=== PATIENT | female | born 1990 | race Caucasian/White ===

== ENCOUNTER 2019-03-17 22:44 | Inpatient (IN) | payer OTHER ==
[~2019-03-17] VITALS: Ht 182.9 cm; Wt 85.0 kg
[~2019-03-17 22:44] MED LIST: ALBU90OI INH; AMOCLA875 PO; Augmentin 500-1 EACH PO; CEPH500 PO; CYCL10 PO; DICL25ER PO; DOXY100 PO; HYDACE5 PO; LIDO2L TOP; METCAR500 PO; NAPR500 PO; OXYACE5T PO; PHENA200 PO; PROM25 PO; RXCYCL10 PO; RXHYDACE PO; SERT100 PO; SULTRIDS PO; Zofran8 MG PO
[2019-03-17] MEDS ORDERED: IRON150C PO (23:40)
[2019-03-17] MEDS ORDERED: Vitamin C100 M1 PO (23:40)
[2019-03-17 23:41] LABS: BASOPHILS ABSOLUTE AUTO 0.02 K/mm3 (0.00-0.23); BASOPHILS PERCENT AUTO 0 % (0-2); EOSINOPHILS ABSOLUTE AUTO 0.16 K/mm3 (0.00-0.68); EOSINOPHILS PERCENT AUTO 1 % (0-6); Hematocrit 33.7 % (33.0-51.0); Hemoglobin 11.8 g/dL (11.5-16.0); IMMATURE GRAN ABSOLUTE AUTO 0.08 K/mm3 (0.00-0.10); IMMATURE GRAN PERCENT AUTO 1 % (0-1); LYMPHOCYTES ABSOLUTE AUTO 1.72 K/mm3 (0.84-5.20); LYMPHOCYTES PERCENT AUTO 15 % (21-46); MONOCYTES PERCENT AUTO 5 % (4-13); Mean Corpuscular HGB 32.8 pg (26.0-34.0); Mean Corpuscular Volume 94 fL (80-100); Mean Platelet Volume 11.2 fL (9.1-12.4); NEUTROPHILS ABSOLUTE AUTO 8.67 K/mm3 (1.96-9.15); NEUTROPHILS PERCENT AUTO 77 % (41-73); Platelet Count 144 K/mm3 (150-400); RDW Coefficient Variation 13.3 % (11.7-14.2); RDW Standard Deviation 45.2 fL (35.1-46.3); White Blood Cell Count 11.25 K/mm3 (4.00-11.30)
[2019-03-17] MEDS ORDERED: ACYC400 PO (23:41)
--- NOTE | 2019-03-18 07:38 | NUR ---
03/18/19 0738 Jose Enrique Doan PT HAD VELASQUEZ AND EPIDURAL IN PLACE PRIOR TO ARRIVAL TO OR. 0795 BABY GIRL BORN. 8-9. WEIGHT 6 LBS 10 OZ. CORD BLOOD SENT WITH BABY NURSE JOVANA ISAACS. NO CORD SEGMENT SENT.
--- NOTE | 2019-03-18 12:03 | NUR ---
PT UP TO WC PT ASKING REPEATEDLY TO GO OUT TO SMOKE URGED PT TO TRY PATCH PT REFUSED AND GOT SELF OUT OF BED PT S.O. WC PT OUTSIDE TO SMOKE.
--- NOTE | 2019-03-18 14:32 | NUR ---
see [facility] incident report baby is being discharged. was kept as a patient to wait for a lab on mom to come back to determine if baby needs treatment and labs including an LP. the lab was not ordered or sent for a confirmation like it was suppose to be. the problem is currently fixed not, but wont get results until friday-. dr jett is aware and called swapnil hanson with dr kerns and [facility]. she is following there recommendations and has gone over the 2 plans with mom. plan is to dischage baby and wait for results on friday, mom is good with this plan.
--- NOTE | 2019-03-18 18:47 | NUR ---
out to smoke, in a wheelchair, pad change, rowdy care, underwear on. coronado emptied dark malgorzata urine
[2019-03-19 05:49] LABS: Hematocrit 21.9 % (33.0-51.0); Hemoglobin 7.4 g/dL (11.5-16.0); Mean Corpuscular HGB Conc 33.8 g/dL (31.5-36.5); Mean Corpuscular Volume 95 fL (80-100); Mean Platelet Volume 11.1 fL (9.1-12.4); Platelet Count 131 K/mm3 (150-400); RDW Coefficient Variation 13.7 % (11.7-14.2); RDW Standard Deviation 46.5 fL (35.1-46.3); Red Blood Cell Count 2.31 M/mm3 (3.80-5.20); White Blood Cell Count 10.38 K/mm3 (4.00-11.30)
[2019-03-20] MEDS ORDERED: IBUP800 PO (11:53)
[2019-03-20] MEDS ORDERED: Norco 5-325 Ta1 EACH PO (11:53)
== END 2019-03-20 13:10 | disposition home or self-care (01) | DRG 788 ==
LOC: OBS 22:44 → BC 22:45 → OBS 23:25 → BC 23:26
PROVIDERS: Obstetrics & Gynecology; ADMIT Advanced Practice Midwife
PROC: 3E0R3BZ Introduction of Anesthetic Agent into Spinal Canal, Percutaneous Approach (ICD-10-PCS; 2019-03-18)
PROC: 10H07YZ Insertion of Other Device into Products of Conception, Via Natural or Artificial Opening (ICD-10-PCS; 2019-03-18)
PROC: 10907ZC Drainage of Amniotic Fluid, Therapeutic from Products of Conception, Via Natural or Artificial Opening (ICD-10-PCS; 2019-03-18)
PROC: 10D00Z1 Extraction of Products of Conception, Low, Open Approach (ICD-10-PCS; principal; 2019-03-18 07:00)
DX: O34.211 Maternal care for low transverse scar from previous cesarean delivery (principal); O62.1 Secondary uterine inertia; Z37.0 Single live birth; Z3A.38 38 weeks gestation of pregnancy; O99.334 Smoking (tobacco) complicating childbirth; F17.200 Nicotine dependence, unspecified, uncomplicated; O99.02 Anemia complicating childbirth; D64.9 Anemia, unspecified
CPT/HCPCS: 36415; 51702; 85025; 85027; 90471; 90707; A9270-GY; J0690; J1885; J2001; J2270; J2405; J2590; J2765; J3010; J7120

== ENCOUNTER 2019-05-10 14:10 | Emergency (ER) | payer OTHER ==
[~2019-05-10] VITALS: Ht 182.9 cm; Wt 74.8 kg
[~2019-05-10 14:10] MED LIST changes: +ACYC400 PO; +IBUP800 PO; +IRON150C PO; +Norco 5-325 Ta1 EACH PO; +Vitamin C100 M1 PO
[2019-05-10] MEDS ORDERED: Norco 5-325 Ta1 EACH PO (16:00)
== END 2019-05-10 16:14 | disposition home or self-care (01) ==
LOC: ER 14:10
DX: S32.2XXA Fracture of coccyx, initial encounter for closed fracture (principal); Z72.0 Tobacco use; W18.30XA Fall on same level, unspecified, initial encounter
CPT/HCPCS: 72220; 99283-25

== ENCOUNTER 2022-09-23 03:07 | Inpatient (IN) | payer OTHER ==
[2022-09-23 03:42] LABS: BASOPHILS ABSOLUTE AUTO 0.04 K/mm3 (0.00-0.23); BASOPHILS PERCENT AUTO 0 % (0-2); EOSINOPHILS ABSOLUTE AUTO 0.13 K/mm3 (0.00-0.68); EOSINOPHILS PERCENT AUTO 1 % (0-6); Hematocrit 32.8 % (33.0-51.0); Hemoglobin 11.5 g/dL (11.5-16.0); IMMATURE GRAN ABSOLUTE AUTO 0.11 K/mm3 (0.00-0.10); IMMATURE GRAN PERCENT AUTO 1 % (0-1); LYMPHOCYTES ABSOLUTE AUTO 1.69 K/mm3 (0.84-5.20); LYMPHOCYTES PERCENT AUTO 12 % (21-46); MONOCYTES ABSOLUTE AUTO 0.96 K/mm3 (0.16-1.47); MONOCYTES PERCENT AUTO 7 % (4-13); Mean Corpuscular HGB 30.7 pg (26.0-34.0); Mean Corpuscular HGB Conc 35.1 g/dL (31.5-36.5); Mean Corpuscular Volume 88 fL (80-100); Mean Platelet Volume 11.2 fL (9.1-12.4); NEUTROPHILS ABSOLUTE AUTO 10.81 K/mm3 (1.96-9.15); NEUTROPHILS PERCENT AUTO 79 % (41-73); Platelet Count 197 K/mm3 (150-400); RDW Coefficient Variation 13.1 % (11.7-14.2); RDW Standard Deviation 40.9 fL (35.1-46.3); Red Blood Cell Count 3.74 M/mm3 (3.80-5.20); White Blood Cell Count 13.74 K/mm3 (4.00-11.30)
[2022-09-23 05:28] LABS: U Amphetamine Screen DETECTED; U Barbituate Screen Not Detected; U Benzodiazapine Screen Not Detected; U Buprenorphine Screen Not Detected; U Cannabinoids Screen DETECTED; U Cocaine Screen Not Detected; U Methadone Screen Not Detected; U Methamphetamine Screen DETECTED; U Opiates Screen Not Detected; U Oxycodone Screen Not Detected; U Phencyclidine Screen Not Detected; U Propoxyphene Screen Not Detected
[2022-09-23 05:34] LABS: Albumin, Blood 2.4 g/dL (3.4-5.0); Albumin/Globulin Ratio 0.6 (0.8-1.8); Bilirubin, Total 0.2 mg/dL (0.1-1.0); Bun/Creatinine Ratio 9.8 (12.0-20.0); Calcium, Blood 8.2 mg/dL (8.5-10.1); Creatinine, Blood 0.51 mg/dL (0.40-1.00); Globulin, Blood 3.9 g/dL (2.2-4.0); Potassium, Blood 3.3 mmol/L (3.5-5.5); Total Protein, Blood 6.3 g/dL (6.4-8.2)
[2022-09-23 05:36] LABS: PCO2 Cord - Arterial 48.9 mmHg (40-50); pH Cord - Arterial 7.29 (7.28-7.35)
[2022-09-23 05:38] LABS: PCO2 Cord - Venous 49.6 mmHg (40-50); PO2 Cord - Venous 19.9 mmHg (28-32)
--- NOTE | 2022-09-23 11:12 | NUR ---
Report to Bereket Bedoya RN.
--- NOTE | 2022-09-23 11:47 | NUR ---
PT SLEEPING, AROUSABLE, REPORTS PAIN 5/10 WHEN AWAKE. PT THEN STARTS EATING LUNCH AND APPEARS SLEEPY
--- NOTE | 2022-09-23 14:15 | NUR ---
EVA D/C. PT UP TO DANGLE AT SIDE OF BED. ALEXEY ISABEL. TRANSFERRED TO W/C AND TO NURSERY TO SEE NB. ALEXEY ISABEL.
--- NOTE | 2022-09-23 14:41 | NUR ---
1430: PT BACK TO ROOM PER HER REQUEST. PT DESIRES TO STAY SITTING IN W/C. REPORTS SHE FEELS MUCH BETTER SITTING UP.
--- NOTE | 2022-09-23 18:47 | NUR ---
PT REPORTS SHE VOIDED AT 1800. 400CC VOIDED COLLECTED.
[2022-09-24 06:16] LABS: BASOPHILS ABSOLUTE AUTO 0.02 K/mm3 (0.00-0.23); BASOPHILS PERCENT AUTO 0 % (0-2); EOSINOPHILS ABSOLUTE AUTO 0.09 K/mm3 (0.00-0.68); EOSINOPHILS PERCENT AUTO 1 % (0-6); Hematocrit 26.4 % (33.0-51.0); IMMATURE GRAN ABSOLUTE AUTO 0.07 K/mm3 (0.00-0.10); IMMATURE GRAN PERCENT AUTO 1 % (0-1); LYMPHOCYTES PERCENT AUTO 13 % (21-46); MONOCYTES ABSOLUTE AUTO 0.79 K/mm3 (0.16-1.47); MONOCYTES PERCENT AUTO 9 % (4-13); Mean Corpuscular HGB 30.7 pg (26.0-34.0); Mean Corpuscular HGB Conc 34.1 g/dL (31.5-36.5); Mean Corpuscular Volume 90 fL (80-100); Mean Platelet Volume 11.1 fL (9.1-12.4); NEUTROPHILS ABSOLUTE AUTO 7.04 K/mm3 (1.96-9.15); NEUTROPHILS PERCENT AUTO 76 % (41-73); Platelet Count 171 K/mm3 (150-400); RDW Coefficient Variation 13.7 % (11.7-14.2); RDW Standard Deviation 43.8 fL (35.1-46.3); Red Blood Cell Count 2.93 M/mm3 (3.80-5.20); White Blood Cell Count 9.21 K/mm3 (4.00-11.30)
[2022-09-24 08:10] LABS: HBSAG SCREEN Negative (Negative); HCV ANTIBODY <0.1 (0.0-0.9); HIV AB/P24 AG SCREEN Non Reactive (Non Reactive)
--- NOTE | 2022-09-24 13:10 | NUR ---
ASSUMPTION OF CARE: ASSUMED CARE OF COUPLET FROM JESUS MONTANA RN. CPS WORKER, CHINO, CAME TO ASSESS FAMILY UNIT. CHINO STATED HE WAS FAMILIAR WITH PATIENT'S FAMILY AND HAD PREVIOUSLY MET PATIENT THOUGH NOT FOR ANY ISSUES RELATED TO HER OR HER CHILDREN. MOTHER AND PARTNER ARE AGREEABLE TO A SAFETY PLAN AND MOTHER SIGNED [employer] FOR [employer] TREATMENT TEAM (ART). PATIENT APPROPRIATE, USES CALL LIGHT APPROPRIATELY, AND TOOK AN AFTERNOON NAP.
[2022-09-25] MEDS ORDERED: Percocet 5-3251 EACH PO (10:57)
[2022-09-25] MEDS ORDERED: IBUP800 PO (10:58)
--- NOTE | 2022-09-25 13:51 | NUR ---
1135: PRINTED DISCHARGE INSTRUCTIONS REVIEWED WITH PATIENT AND SIGNIFICANT OTHER. DENIES ADDITIONAL QUESTIONS AND CONCERNS. ID BANDS MATCHED WITH AND VERIFICATION FORM. DISCHARGE TO HOME TO CARE OF SIGNIFICANT OTHER. VS STABLE.
== END 2022-09-25 11:35 | disposition home or self-care (01) | DRG 787 ==
LOC: OBS 03:07 → BC 03:10 → OBS 03:23 → BC 03:24
PROVIDERS: ADMIT Obstetrics & Gynecology
PROC: 10D00Z1 Extraction of Products of Conception, Low, Open Approach (ICD-10-PCS; principal; 2022-09-23 03:45)
DX: O60.14X0 Preterm labor third trimester with preterm delivery third trimester, not applicable or unspecified (principal); D62 Acute posthemorrhagic anemia; O99.324 Drug use complicating childbirth; O98.32 Other infections with a predominantly sexual mode of transmission complicating childbirth; Z37.0 Single live birth; F12.10 Cannabis abuse, uncomplicated; F17.210 Nicotine dependence, cigarettes, uncomplicated; O99.334 Smoking (tobacco) complicating childbirth; A60.00 Herpesviral infection of urogenital system, unspecified; O34.211 Maternal care for low transverse scar from previous cesarean delivery; F15.10 Other stimulant abuse, uncomplicated; O90.81 Anemia of the puerperium; D50.9 Iron deficiency anemia, unspecified; O76 Abnormality in fetal heart rate and rhythm complicating labor and delivery; Z3A.35 35 weeks gestation of pregnancy; Z79.899 Other long term (current) drug therapy
CPT/HCPCS: 36415; 78452; 80053; 82803; 85025; 86592; 86703; 86762; 86803; 86850; 86900; 86901; 87340; 87389; A9270; A9500; J0456; J0690; J1170; J1885; J2370; J2590; J2765; J2916; J3010; J7050; J7120